=== PATIENT | female | born 1965 | race Caucasian/White ===

== ENCOUNTER 2018-04-21 11:44 | Emergency (ER) | payer OTHER ==
[~2018-04-21] VITALS: Ht 167.6 cm; Wt 78.1 kg
[~2018-04-21 11:44] MED LIST: GABA300C10 PO
[2018-04-21 12:12] VITALS: BP 113/77
[2018-04-21 12:47] LABS: ALBUMIN 3.8 g/dL (3.4-5.0); ANION GAP 10 mmol/L (5-15); CALCIUM 8.9 mg/dL (8.5-10.1); CHLORIDE 111 mmol/L (98-107)
[2018-04-21 12:48] LABS: RED BLOOD COUNT 4.52 x10^6/uL (3.82-5.3)
[2018-04-21 12:49] LABS: LYMPHOCYTES % (AUTO) 26 % (22-44); MEAN CORPUSCULAR HEMOGLOBIN 28.4 pg (27.0-34.8); MEAN CORPUSCULAR VOLUME 88.7 fL (80-100); MEAN PLATELET VOLUME 8.4 fL (7.4-10.4); MONOCYTES % (AUTO) 10 % (2-9); NEUTROPHILS % (AUTO) 58 % (42-75); PLATELET COUNT 308 x10^3/uL (130-400); RED CELL DISTRIBUTION WIDTH 13.4 % (9.6-15.2)
[2018-04-21 12:50] LABS: ACETAMINOPHEN < 2 mcg/mL (10-30); BASOPHILS # (AUTO) 0.02 x10^3/uL (0-0.1); BASOPHILS % (AUTO) 0 % (0-1); EOSINOPHILS % (AUTO) 6 % (1-7); LYMPHOCYTES # (AUTO) 1.69 x10^3/uL (1-3.4); MD NO; MONOCYTES # (AUTO) 0.67 x10^3/uL (0.2-0.8); NEUTROPHILS # (AUTO) 3.79 x10^3/uL (1.8-6.8); SALICYLATE LEVEL < 1.7 mg/dL (2.8-20.0)
[2018-04-21 13:01] LABS: AMPHETAMINE SCREEN, URINE Negative (Negative); BARBITURATE SCREEN, URINE Negative (Negative); BENZODIAZEPINE SCREEN, URINE Negative (Negative); CANNABINOID SCREEN, URINE Positive (Negative); COCAINE SCREEN, URINE Negative (Negative); METHADONE SCREEN, URINE Negative (Negative); OPIATE SCREEN, URINE Negative (Negative)
== END 2018-04-21 14:44 | disposition home or self-care (01) ==
LOC: ED 14:07
DX: F31.9 Bipolar disorder, unspecified (principal); F41.1 Generalized anxiety disorder
CPT/HCPCS: 36415; 80048; 80307; 80329; 82040; 85025; 99284; G0480

== ENCOUNTER 2018-05-09 08:53 | Emergency (ER) | payer OTHER ==
[~2018-05-09] VITALS: Ht 167.6 cm; Wt 78.4 kg
[2018-05-09 08:55] VITALS: BP 133/81
[2018-05-09] MEDS ORDERED: OXYcodone/APAP 5/325MG TABLET ONE (09:27)
[2018-05-09] MEDS ORDERED: OXYcodone/APAP 5/325MG TABLET PO ONE (09:30)
[2018-05-09] MEDS ORDERED: ONDANSETRON ODT 4 MG ONE (09:33)
[2018-05-09] MEDS ORDERED: ONDANSETRON ODT 4 MG PO ONE (10:00)
== END 2018-05-09 10:23 | disposition home or self-care (01) ==
LOC: ED 10:04
DX: M54.41 Lumbago with sciatica, right side (principal); M46.1 Sacroiliitis, not elsewhere classified; G43.909 Migraine, unspecified, not intractable, without status migrainosus; F41.1 Generalized anxiety disorder; F31.9 Bipolar disorder, unspecified
CPT/HCPCS: 73502; 99284; J7512; Q0162

== ENCOUNTER 2018-05-25 12:02 | Emergency (ER) | payer OTHER ==
[~2018-05-25] VITALS: Ht 172.7 cm; Wt 85.0 kg
--- NOTE | 2018-05-25 12:41 | NUR ---
PT BIB [facility] FOR SI. PT STATED " I WANTED TO GIVE THESE [place] A RIDE TO [place] TO GET 200.00 TO PAY MY RENT." " I AM TIRED OF NOT BEING ABLE TO MAKE IT, I JUST WANT TO END IT. I JUST HAVE A RAT AT HOME THAT I NEED TO TAKE CARE OF SO, I DON'T WANT TO LEAVE HIM BEHIND. IM TIRED OF BEING HOMELESS AND WITH NO JOB. IM ON DISABILITY. I JUST CANT MAKE IT ANYMORE." PT CHANGED INTO GOWN. PT PLACED IN ROOM AND DOORS SECURTED. BELONGINGS LOCKED INTO CABINET. PT COOPERATIVE. PT BREATHALYZED 0.000. PT VERY ANXIOUS AT THIS TIME.
--- NOTE | 2018-05-25 13:38 | NUR ---
SITTER OUTSIDE OF ROOM AT THIS TIME. PT COOPERATIVE. URINE COLLECTED AND SENT TO LAB
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
[2018-05-25 13:57] LABS: BASOPHILS % (AUTO) 0 % (0-1); EOSINOPHILS # (AUTO) 0.02 x10^3/uL (0-0.4); EOSINOPHILS % (AUTO) 0 % (1-7); LYMPHOCYTES # (AUTO) 0.91 x10^3/uL (1-3.4); LYMPHOCYTES % (AUTO) 5 % (22-44); MD NO; MEAN CORPUSCULAR HEMOGLOBIN 28.2 pg (27.0-34.8); MEAN CORPUSCULAR HGB CONC 32.2 g/dL (32.4-35.8); MEAN CORPUSCULAR VOLUME 87.5 fL (80-100); MEAN PLATELET VOLUME 7.9 fL (7.4-10.4); MONOCYTES # (AUTO) 0.37 x10^3/uL (0.2-0.8); MONOCYTES % (AUTO) 2 % (2-9); NEUTROPHILS # (AUTO) 16.23 x10^3/uL (1.8-6.8); NEUTROPHILS % (AUTO) 93 % (42-75); PLATELET COUNT 395 x10^3/uL (130-400); RED BLOOD COUNT 4.76 x10^6/uL (3.82-5.3)
[2018-05-25 14:00] LABS: MICROSCOPIC NOT IND
[2018-05-25 14:01] LABS: CULTURE INDICATED? NO
[2018-05-25 14:11] LABS: AMPHETAMINE SCREEN, URINE Negative (Negative); BARBITURATE SCREEN, URINE Negative (Negative); BENZODIAZEPINE SCREEN, URINE Negative (Negative); CANNABINOID SCREEN, URINE Positive (Negative); COCAINE SCREEN, URINE Negative (Negative); METHADONE SCREEN, URINE Negative (Negative); OPIATE SCREEN, URINE Negative (Negative)
[2018-05-25 14:11] LABS: ALBUMIN 3.9 g/dL (3.4-5.0); ANION GAP 8 mmol/L (5-15); CHLORIDE 105 mmol/L (98-107)
[2018-05-25 14:12] LABS: CREATININE 0.64 mg/dL (0.55-1.02); SALICYLATE LEVEL < 1.7 mg/dL (2.8-20.0)
[2018-05-25 14:13] LABS: ACETAMINOPHEN < 2 mcg/mL (10-30)
--- NOTE | 2018-05-25 14:40 | NUR ---
PT RESTING IN BED. SITTER OUTSIDE. PT GIVEN WATER.
--- NOTE | 2018-05-25 16:00 | NUR ---
PT GIVEN MEAL TRAY AND ATE 60%.
[2018-05-25] MEDS ORDERED: LORazepam 1MG TABLET ONE ×2 (16:09→19:22)
[2018-05-25] MEDS ORDERED: ACETAMINOPHEN 325 MG TABLET ONE (16:10)
[2018-05-25] MEDS ORDERED: PLEASE ENTER HEIGHT AND WEIGHT MC SCH (16:30)
[2018-05-25] MEDS ORDERED: BISACODYL 10 MG SUPP PR PRN (16:30)
[2018-05-25] MEDS ORDERED: ACETAMINOPHEN 325 MG TABLET PO ONE (16:30)
[2018-05-25] MEDS ORDERED: DOCUSATE 100 MG CAPSULE PO PRN (16:30)
[2018-05-25] MEDS ORDERED: KETOROLAC 30 MG/1 ML IM PRN (16:30)
[2018-05-25] MEDS ORDERED: ONDANSETRON ODT 4 MG PO PRN (16:30)
[2018-05-25] MEDS ORDERED: POLYETHYLENE GLYCOL 17 GM PACKET PO PRN (16:30)
[2018-05-25] MEDS ORDERED: ASA/APAP/ CAFFEINE TABLET PO PRN (16:30)
[2018-05-25] MEDS ORDERED: LORazepam 1MG TABLET PO ONE (16:30)
[2018-05-25] MEDS ORDERED: ACETAMINOPHEN 325 MG TABLET PO PRN (16:30)
--- NOTE | 2018-05-25 16:30 | NUR ---
PT ALLOWED TO HAVE PHONE TO GET HER CAR TOWED. PT THE BEGAN SCREAMING AND YELLING. PT STATING " I HAVE A HEADACHE, GIVE ME SOMETHING, MARIE BEEN HERE FOR 4 HOURS AND YOU GUYS HAVENT DONE ANTHING." MD AWARE AND MEDS GIVEN.
--- NOTE | 2018-05-25 16:45 | NUR ---
X-RAY AT BEDSIDE AND PT SCREAMING ON PHONE. I TOLD PT THAT I NEEDED TO TAKE THE PHONE AND SHE STATED " FUCK YOU YOU BITCH, IM TRYING TO GET MY CAR TOWED SO I HAVE A PLACE TO STAY." FUCK YOU, YOU SUDISTIC BITCH." RADIOLOGIST AT BEDSIDE. SECURITY CALLED. SECURITY AT BEDSIDE. MD AWARE OF PT YELLING AND SCREAMING. PT STATED " I JUST WANT TO , BUT SOMEONE HAS TO TAKE CARE OF MY RAT. "
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
[2018-05-25] MEDS ORDERED: DIPHENHYDRAMINE 25 MG CAPSULE PO ONE (17:00)
[2018-05-25] MEDS ORDERED: ZIPRASIDONE 20 MG INJ IM ONE (17:00)
--- NOTE | 2018-05-25 17:33 | NUR ---
pt yelling and screaming " get me the fuck out of here." " you are killing me, my rat is going to at home. I need someone to go take care of my rat." "you are treating me like an animal.' pt reasurred to calm down. pt still continues to scream. aware.
--- NOTE | 2018-05-25 17:35 | NUR ---
PACKET FAXED TO [facility], [facility], [facility], [facility] AND [facility]
--- NOTE | 2018-05-25 18:13 | NUR ---
SECURITY AT BEDSIDE. PT URINATED ALL OVER BED. PT CHANGED AND BILATERALS ARMS CHANGED. PT STILL IN 4 POINT RESTRAINTS. PT STATED " YOU NEED TO LET ME GO, I WONT KILL MYSELF, I HAVE TO TAKE CARE OF MY RAT. GET ME THE FUCK OUT OF HERE, I HATE THIS." PT SHAKING 4 POINT RESTRAINTS.
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
[2018-05-25] MEDS ORDERED: HALOPERIDOL 5 MG/ML IM ONE (18:30)
--- NOTE | 2018-05-25 19:13 | NUR ---
REPORT GIVEN TO ABDIRASHID HUNT.
[2018-05-25] MEDS ORDERED: HALOPERIDOL 5 MG/ML ONE (19:21)
[2018-05-25] MEDS ORDERED: DIPHENHYDRAMINE 25 MG CAPSULE ONE (19:22)
[2018-05-25] MEDS: LORazepam 1MG TABLET PO PRN (19:42)
--- NOTE | 2018-05-25 19:42 | NUR ---
PT MEDICATED FOR HEADACHE AND AGITATION. PT AGREES TO MEDICATION ADMINISTRATION, PT TAKEN OUT OF 2 PT RESTRAINTS TO BE ABLE TO TAKE PO MEDS SAFELY, REMAINS IN 2 POINT, SITTER REMAINS AT DOOR
--- NOTE | 2018-05-25 20:30 | NUR ---
PT REMOVED FROM ALL RESTRAINTS. AGREES TO REMAIN COOPERATIVE WITH STAFF. PT EXPRESSED THAT SHE WAS ANGRY EARLIER BECAUSE SHE WAS TRYING TO HAVE HER CAR TOWED BUT DUE TO HOSPITAL POLICY PTS PHONE WAS TAKEN AWAY. RN EXPLAINED TO PT THAT IT WAS NOT ONLY POLICY BUT IN ADDITION TO HER BEHAVIOR SHE WAS PLACED IN RESTRAINTS AND PHONE WAS REMOVOED. PT WAS GIVEN PHONE TO CALL HER [employer] FOR HER "PET RAT" AND AGREES TO LET RN SECURE IT WHEN SHE IS DONE. SHE IS AWARE ANY LOUD AGGRESSIVE BEHAVIOR WILL RESULT IN RESTRAINTS AND CELL PHONE REMOVED.
--- NOTE | 2018-05-25 20:56 | NUR ---
pt is using her cell sitter at bed side pt is cooperative given pillow and warm blanket
[2018-05-25] MEDS ORDERED: GABAPENTIN 300 MG CAPSULE PO SCH (21:00)
--- NOTE | 2018-05-25 22:14 | NUR ---
PT RESTING QUITETLY ON GURNEY, APPEARS TO BE SLEEPING, BILATERAL CHEST RISE NOTED. SITTER REMAINS AT DOOR WATCHING PT
--- NOTE | 2018-05-25 23:45 | NUR ---
PT RESTING ON GURNEY, BILATERAL CHEST RISE NOTED. PT REMAINS UNDER CONSTANT WATCH FROM SITTER AT DOOR
--- NOTE | 2018-05-26 01:27 | NUR ---
PT APPEARS TO BE SLEEPING, BILATERAL CHEST RISE NOTED. HOSPITAL BED AVAILABLE FOR PATIENT WHEN SHE WAKES UP.
--- NOTE | 2018-05-26 03:27 | NUR ---
PT APPEARS TO BE SLEEPING, BILATERAL CHEST RISE NOTED. SITTER REMAINS AT DOOR WATCHING PT
--- NOTE | 2018-05-26 04:06 | NUR ---
RECEIVED REPORT FROM MARILEE MENDENHALL TO ASSUME PT. CARE. PT. RESTING ON HOSPITAL BED RIGHT SIDE LYING WITH NADN. EYES CLOSED. EVEN, NON-LABORED RESPIRATIONS NOTED. ROOM IS SECURED. SITTER IN DOORWAY. Addendum: 05/26/18 at 0420 by ORLIN PT. IS ON [facility]; NO MORE HOSPITAL BEDS AVAIL. TO PLACE ED HOLDS ON.
--- NOTE | 2018-05-26 05:28 | NUR ---
PT. REPORTS SHE TAKES 88MCG OF LEVOTHYROXINE THIS TIME OF MORNING EVERY DAY. REQUESTED MED ORDER FROM DR. DAI; NO NEW ORDERS DR. DAI STATES NO NEW MEDS CAN BE ORDERED ON [facility] UNLESS THEY ARE VERIFIED BY THE PHARMACY WHERE PT. FILLS MEDS.
--- NOTE | 2018-05-26 05:31 | NUR ---
PT. STATES SHE USES [facility] ON [address] FOR MEDS. UNABLE TO CONTACT PHARMACY TO CONFIRM MEDS AT THIS TIME THEY ARE CLOSED.
--- NOTE | 2018-05-26 05:39 | NUR ---
PHONE REMOVED FROM PT; PT. CALM/COOPERATIVE WITH STAFF. PT. UPDATED THAT WE WILL HAVE TO VERIFY MED WITH PHARMACY AND IS IN AGREEMENT WITH PLAN TO CALL PHARMACY WHEN OPEN. NADN. ROOM IS SECURED. SITTER IN PATEL.
[2018-05-26 05:43] LABS: BASOPHILS # (AUTO) 0.06 x10^3/uL (0-0.1); BASOPHILS % (AUTO) 1 % (0-1); EOSINOPHILS # (AUTO) 0.32 x10^3/uL (0-0.4); EOSINOPHILS % (AUTO) 3 % (1-7); LYMPHOCYTES # (AUTO) 1.93 x10^3/uL (1-3.4); LYMPHOCYTES % (AUTO) 19 % (22-44); MD NO; MEAN CORPUSCULAR HEMOGLOBIN 28.3 pg (27.0-34.8); MEAN CORPUSCULAR HGB CONC 32.2 g/dL (32.4-35.8); MEAN CORPUSCULAR VOLUME 87.8 fL (80-100); MEAN PLATELET VOLUME 7.9 fL (7.4-10.4); MONOCYTES # (AUTO) 0.78 x10^3/uL (0.2-0.8); MONOCYTES % (AUTO) 8 % (2-9); NEUTROPHILS # (AUTO) 6.87 x10^3/uL (1.8-6.8); NEUTROPHILS % (AUTO) 69 % (42-75); PLATELET COUNT 415 x10^3/uL (130-400); RED BLOOD COUNT 4.51 x10^6/uL (3.82-5.3); RED CELL DISTRIBUTION WIDTH 15.2 % (9.6-15.2)
--- NOTE | 2018-05-26 06:04 | NUR ---
PT. AMBULATORY TO BR AND BACK TO ROOM. STEADY GAIT.
[2018-05-26] MEDS ORDERED: LORazepam 1MG TABLET ONE (06:33)
[2018-05-26] MEDS ORDERED: KETOROLAC 30 MG/1 ML ONE (06:35)
[2018-05-26] MEDS ORDERED: ONDANSETRON ODT 4 MG ONE (06:35)
[2018-05-26] MEDS: LORazepam 1MG TABLET PO PRN (06:40)
--- NOTE | 2018-05-26 06:40 | NUR ---
PT. MEDICATED FOR 8 MIGRANE AND NAUSEA PER JUL. PT. ALSO REPORTS ANXIETY OVER SITUAION; MEDICATED PER JUL. PT. USING CELL PHONE TO CONTACT FRIEND ABOUT PET RAT; PT. AGREES TO GIVE PHONE BACK AFTER PHONE CALL. ROOM REMAINS SECURED. SITTER IN DOORWAY.
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
--- NOTE | 2018-05-26 09:08 | NUR ---
PATIENT SLEEPING SOUNDLY. AWAKES TO LIGHT STIMULATION, BUT OTHERWISE RESTING QUIETLY.
--- NOTE | 2018-05-26 09:35 | NUR ---
[facility] RN CALLED FROM [facility] FOR ACCEPTANCE TO FACILITY. NO MD AT THIS TIME BUT WILL CALL WHEN THEY DO.
--- NOTE | 2018-05-26 09:59 | NUR ---
[facility] RN CALLED AND THEY ARE ACCEPTING DILIA AT [facility] UNDER DR MAGDALENA MD. WILL ALERT OUR STAFF TO INITIATED TRANSPORT.
--- NOTE | 2018-05-26 10:45 | NUR ---
ORDERED SI LUNCH TRAY. PATIENT IN BED CALM. PLACEMENT ACCEPTED AND PATIENT AWAITING TRANSFER.
--- NOTE | 2018-05-26 11:15 | NUR ---
PER KIARRA AT [facility] PT NOT ELIGIBLE FOR TRANSPORT
--- NOTE | 2018-05-26 11:33 | NUR ---
[facility]ITARIO AT [facility] INFORMED OF ETA
[2018-05-26 11:39] VITALS: BP 116/78
--- NOTE | 2018-05-26 12:14 | NUR ---
ALL BELONGINGS INCLUDING IWATCH AND GLASSES RETURNED. REPORT GIVEN, AND [facility] LEFT WITH [facility] FOR [place].
== END 2018-05-26 12:16 ==
LOC: ED 12:34 → EDIP 16:19 → UNDOADMIN 16:19 → ED 05-26 12:16
DX: R45.851 Suicidal ideations (principal)
CPT/HCPCS: 36415; 71045; 80048; 80307; 80329; 81003; 81025; 82040; 85025; 96372; 99285; J1630; J1885; J3486; Q0162; Q0163; G0480

== ENCOUNTER 2018-06-26 11:39 | Emergency (ER) | payer OTHER ==
[~2018-06-26] VITALS: Ht 167.6 cm; Wt 79.1 kg
[2018-06-26 11:57] VITALS: BP 125/81
== END 2018-06-26 13:08 | disposition home or self-care (01) ==
LOC: ED 13:00
DX: S46.812A Strain of other muscles, fascia and tendons at shoulder and upper arm level, left arm, initial encounter (principal); G43.909 Migraine, unspecified, not intractable, without status migrainosus; X58.XXXA Exposure to other specified factors, initial encounter; Y93.89 Activity, other specified; Y92.89 Other specified places as the place of occurrence of the external cause; Y99.8 Other external cause status
CPT/HCPCS: 93005; 99283